=== PATIENT | female | born 1950 | race Caucasian/White ===

== ENCOUNTER 2018-08-18 17:59 | Inpatient (IN) | payer MEDICARE, BC ==
[~2018-08-18] VITALS: Ht 162.6 cm; Wt 97.1 kg
--- NOTE | 2018-08-18 18:07 | NUR ---
PT [id number], FROM HOME, GLF, ON THE GROUND FOR 4 DAYS, DENIES PAIN, -KO, PT IS AAOX4, NOT IN RESPIRATORY DISTRESS, V/S STABLE, HOOKED TO MONITOR, KEPT RESTED AND COMFORTABLE. WILL CONTINUE TO MONITOR.
--- NOTE | 2018-08-18 18:18 | NUR ---
DR. MITCHELL AT BEDSIDE FOR EVAL.
--- NOTE | 2018-08-18 18:24 | NUR ---
CALLED ADMITTING FOR INSURANCE. WATING FOR CALL BACK.
[2018-08-18] MEDS ORDERED: IV NS 0.9% 1,000 ML BAG IV ONE ×2 (18:30→19:30)
--- NOTE | 2018-08-18 18:35 | NUR ---
IV LINE ESTABLISHED, LABS DRAWNED AND SENT TO LAB.
[2018-08-18 18:38] LABS: MEAN CORPUSCULAR HGB CONC 33 g/dl (31.0-36.0); MONOCYTES # (AUTO) 1.4 /CMM (0.1-1.30); NEUTROPHILS % (AUTO) 90.1 % (43.0-81.0)
[2018-08-18 18:44] LABS: BASOPHILS % (AUTO) 0.2 % (0.0-2.0); LYMPHOCYTES # (AUTO) 1.4 /CMM (0.8-4.8); LYMPHOCYTES % (AUTO) 4.8 % (20.0-44.0); MEAN CORPUSCULAR VOLUME 91 fL (82-100); MONOCYTES % (AUTO) 4.9 % (2.0-12.0); NEUTROPHILS # (AUTO) 25.6 /CMM (1.8-8.9); PLATELET COUNT (AUTO) 686 /CMM (150-450); WHITE BLOOD COUNT (AUTO) 28.4 K/uL (4.3-11.0)
[2018-08-18 18:49] LABS: CALCIUM, SERUM 8.6 mg/dL (8.5-10.1); CREATININE 2.3 mg/dL (0.6-1.3); POTASSIUM 4.5 mmol/L (3.5-5.1)
[2018-08-18 18:52] LABS: RED BLOOD CELL COUNT(AUTO) 1.46 MIL/uL (4.0-5.2)
[2018-08-18 18:53] LABS: HEMATOCRIT 13 % (33-45); HEMOGLOBIN 4.4 g/dL (11.5-14.8)
[2018-08-18] MEDS ORDERED: VANCOMYCIN 1 GM in IV D5W 250 ML IV STA (19:17)
[2018-08-18] MEDS ORDERED: CEFEPIME 1 GM in IV D5W 50 ML IV STA (19:17)
--- NOTE | 2018-08-18 19:23 | NUR ---
CALLED [employer]. STRETCHER LEVELER OPERATOR WAS PAGED.
--- NOTE | 2018-08-18 19:31 | NUR ---
REPORT GIVEN TO MARLON FELIPE FOR PEDRO LUIS.
--- NOTE | 2018-08-18 19:36 | NUR ---
CALLED [facility]SE [facility] FOR KHOA BED
[2018-08-18 19:40] LABS: APPEARANCE,URINE Clear (CLEAR); BILIRUBIN,URINE Negative (NEGATIVE); BLOOD, URINE Negative Ery/uL (NEGATIVE); COLOR,URINE Yellow (YELLOW); KETONES,URINE Trace (NEGATIVE); LEUKOCYTE ESTERASE ,URINE Negative (NEGATIVE); NITRITE, URINE Negative (NEGATIVE); PROTEIN,URINE Negative (NEGATIVE); UGLUCOSE Negative (NEGATIVE); UROBILINOGEN,URINE 0.2 EU/dL (0.2)
[2018-08-18 19:51] LABS: RBC,URINE 0-2 /HPF (0-2)
[2018-08-18 19:52] LABS: BACTERIA,URINE 2+ /HPF (None Seen); SQUAMOUS EPITHELIAL CELL,UR Few /HPF (None Seen); WBC,URINE 0-2 /HPF (0-3)
--- NOTE | 2018-08-18 20:00 | NUR ---
KHOA BED 118-1 GIVEN
--- NOTE | 2018-08-18 20:07 | NUR ---
REPORT GIVEN TO PEDRITO MASON FOR PEDRO LUIS.
[2018-08-18 20:15] VITALS: BP 98/49
[2018-08-18 20:46] VITALS: BP 98/49
[2018-08-18 21:04] LABS: BAND % (MANUAL) 3 % (0.0-5.0); LYMPHOCYTES % (MANUAL) 7 % (16-48); MONOCYTES % (MANUAL) 5 % (0-11.0); NEUTROPHILS % (MANUAL) 85 (42-76)
[2018-08-18 21:07] VITALS: BP 121/53
[2018-08-18] MEDS ORDERED: DEXTROSE 50%-WATER 50 ML DISP.SYRIN IV PRN (22:00)
[2018-08-18] MEDS ORDERED: ACETAMINOPHEN 325 MG TABLET PO PRN (22:00)
[2018-08-18] MEDS ORDERED: ZOLPIDEM TARTRATE 5 MG TABLET PO PRN (22:00)
[2018-08-18] MEDS ORDERED: Z GUARD REMEDY 2 OZ OINT TP PRN (22:00)
[2018-08-18] MEDS ORDERED: HYDROCODONE/APAP 5/325MG 1 EACH TABLET PO PRN (22:00)
[2018-08-18] MEDS ORDERED: INSULIN REGULAR, HUMAN 100 UNIT/ML 3 ML VIAL SQ PRN (22:00)
[2018-08-18] MEDS ORDERED: MAGNESIUM HYDROXIDE 30 ML UDC PO PRN (22:00)
[2018-08-18] MEDS ORDERED: ONDANSETRON HCL/PF 4 MG/2 ML VIAL IVP PRN (22:00)
[2018-08-18 22:10] LABS: ALBUMIN 2.7 g/dL (3.4-5.0)
[2018-08-18] MEDS: BLOOD SUGAR DIAGNOSTIC 1 EACH STRIP IN SCH (22:40)
[2018-08-18 23:11] VITALS: BP 130/53
[2018-08-18 23:43] VITALS: BP 114/47
[2018-08-19] VITALS (11 sets, daily range): BP systolic 108–147; BP diastolic 39–77
[2018-08-19] MEDS: IV NS 0.9% 1,000 ML IV PRN ×2 (05:20→09:46)
[2018-08-19 07:26] LABS: BASOPHILS % (AUTO) 0.2 % (0.0-2.0); EOSINOPHILS % (AUTO) 0.2 % (0.0-6.0); LYMPHOCYTES # (AUTO) 1.6 /CMM (0.8-4.8); LYMPHOCYTES % (AUTO) 6.6 % (20.0-44.0); MEAN CORPUSCULAR HGB CONC 33 g/dl (31.0-36.0); MEAN CORPUSCULAR VOLUME 91 fL (82-100); MONOCYTES # (AUTO) 1.7 /CMM (0.1-1.30); NEUTROPHILS # (AUTO) 20.2 /CMM (1.8-8.9); PLATELET COUNT (AUTO) 557 /CMM (150-450); RED BLOOD CELL COUNT(AUTO) 2.17 MIL/uL (4.0-5.2); WHITE BLOOD COUNT (AUTO) 23.5 K/uL (4.3-11.0)
[2018-08-19 07:35] LABS: BILIRUBIN,DIRECT 0.1 mg/dL (0.0-0.2); BILIRUBIN,TOTAL 0.5 mg/dL (0.2-1.0)
[2018-08-19 07:38] LABS: CALCIUM, SERUM 8.3 mg/dL (8.5-10.1); CREATININE 1.8 mg/dL (0.6-1.3); MAGNESIUM 2.3 mg/dL (1.8-2.4); PHOSPHORUS 3.4 mg/dL (2.5-4.9); POTASSIUM 4.1 mmol/L (3.5-5.1)
--- NOTE | 2018-08-19 08:00 | NUR ---
TD/RN AM SHIFT INITIAL NOTES RECEIVED PT ASLEEP IN BED, AROUSEABLE. PT A/O X 4, DENIES ANY OTHER SYMPTOMS EXCEPT FOR GENERALIZED PAIN. ON ROOM AIR SATURATING @ 97%, RESPIRATIONS EVEN AND UNLABORED. ON TELE WITH SINUS RHYTHM, HR 80. WITH ON GOING IV INFUSION OF NS @ 125CC/HR, IV SITES PATENT WITH NO S/S OF INFECTION. CL WITHIN REACHED AND SAFETY MAINTAINED. ON GOING MONITORING.
[2018-08-19 08:12] LABS: HEMATOCRIT 20 % (33-45); HEMOGLOBIN 6.5 g/dL (11.5-14.8)
[2018-08-19] MEDS: BLOOD SUGAR DIAGNOSTIC 1 EACH STRIP IN SCH ×4 (08:23→23:38)
[2018-08-19] MEDS ORDERED: OMEG1CAP PO (09:45)
[2018-08-19] MEDS ORDERED: UBID30CA11 PO (09:45)
[2018-08-19] MEDS ORDERED: FURO20TA4 PO (09:45)
[2018-08-19] MEDS ORDERED: CHOL200026 PO (09:45)
[2018-08-19] MEDS ORDERED: INSU100I26 SQ (09:45)
[2018-08-19] MEDS ORDERED: LISI-603 PO (09:45)
[2018-08-19 10:32] LABS: LYMPHOCYTES % (MANUAL) 6 % (16-48); MONOCYTES % (MANUAL) 8 % (0-11.0); NEUTROPHILS % (MANUAL) 86 (42-76)
--- NOTE | 2018-08-19 11:45 | NUR ---
MS1/RN PHYSICAL THERAPY PT SEEN BY PHYSICAL THERAPIST. TOLERATED SESSION WITH THERAPIST. MONITORING CONTINUED.
--- NOTE | 2018-08-19 12:10 | NUR ---
MS1/RN BLOOD TRANSFUSION INFUSION OF BLOOD STARTED FOR 1 UNIT OF PRBC. ON GOING MONITORING.
--- NOTE | 2018-08-19 13:45 | NUR ---
TELE1/RN RBC INFUSION NOTES PATIENT RECEIVED ONE UNIT OF PACKED RBC'S W/ NO ADVERSE REACTION NOTED, NO S/S OF DISTRESS OR REACTION, TOLERATED INFUSION WELL.
[2018-08-19] MEDS ORDERED: DEXTROSE 50%-WATER 50 ML DISP.SYRIN IV PRN (16:00)
[2018-08-19] MEDS: IV D5/ 0.9% NACL 1,000 ML IV PRN (16:11)
[2018-08-19] MEDS: PANTOPRAZOLE 40 MG VIAL IV SCH ×2 (16:13→20:32)
[2018-08-19] MEDS: SUCRALFATE 1 G/10 ML UDC GT SCH ×2 (17:28→21:48)
[2018-08-19 18:13] LABS: ALBUMIN 2.3 g/dL (3.4-5.0); BILIRUBIN,DIRECT 0.1 mg/dL (0.0-0.2); BILIRUBIN,TOTAL 0.4 mg/dL (0.2-1.0); TOTAL PROTEIN, SERUM 5.6 g/dL (6.4-8.2)
--- NOTE | 2018-08-19 19:15 | NUR ---
MS/RN INITIAL NOTES RECEIVED PT IN BED, A/OX3. ON ROOM AIR, NO SOB NOTED. NO C/O PAIN AT THIS TIME. WITH ONGOING D5NS AT 75 ML/HR INFUSING WELL ONF LAC G18 IV. C/D/I. FC INTACT AND IN PLACED, FC CLAMPED FOR URINE SPECIMEN COLLECTION. PT IS NPO FOR EGD PROCEDURE TOMORROW, PT MADE AWARE AND VERBALIZED UNDERSTANDING. CONSENT SIGNED IN CHART PER AM RN. NO OVERT BLEEDING NOTED. SAFETY MEASURES IN PLACED. CALL LIGHT WITHIN EASY REACH. WILL CONT TO MONITOR
--- NOTE | 2018-08-19 19:24 | NUR ---
MEDSURGE1/RN HAND OFF NOTES COMPLETED CHANGE OF SHIFT REPORT AND UPDATED NIGHT NURSE ON PROCEDURES TO COMPLETE, URINE COLLECTION, STOOL COLLECTION. PATIENT WAS HANDED OFF IN STABLE CONDITION AND TOLD TO CONTINUE CARE, POSSIBLE EDG TOMORROW TO RULE OUT POSSIBLE GI BLEED.
[2018-08-19] MEDS: INSULIN REGULAR, HUMAN 100 UNIT/ML 3 ML VIAL SQ PRN (23:40)
[2018-08-20 04:00] VITALS: BP 107/49
[2018-08-20] MEDS: IV D5/ 0.9% NACL 1,000 ML IV PRN (05:24)
[2018-08-20] MEDS: BLOOD SUGAR DIAGNOSTIC 1 EACH STRIP IN SCH ×3 (05:35→17:22)
[2018-08-20 06:51] LABS: BASOPHILS % (AUTO) 0.1 % (0.0-2.0); EOSINOPHILS % (AUTO) 1.1 % (0.0-6.0); HEMATOCRIT 21 % (33-45); HEMOGLOBIN 7.2 g/dL (11.5-14.8); LYMPHOCYTES # (AUTO) 1.5 /CMM (0.8-4.8); LYMPHOCYTES % (AUTO) 8.8 % (20.0-44.0); MEAN CORPUSCULAR HGB CONC 34 g/dl (31.0-36.0); MEAN CORPUSCULAR VOLUME 91 fL (82-100); MONOCYTES # (AUTO) 1.7 /CMM (0.1-1.30); MONOCYTES % (AUTO) 9.7 % (2.0-12.0); NEUTROPHILS # (AUTO) 13.8 /CMM (1.8-8.9); NEUTROPHILS % (AUTO) 80.3 % (43.0-81.0); PLATELET COUNT (AUTO) 542 /CMM (150-450); RED BLOOD CELL COUNT(AUTO) 2.32 MIL/uL (4.0-5.2); WHITE BLOOD COUNT (AUTO) 17.2 K/uL (4.3-11.0)
[2018-08-20 06:56] LABS: ALBUMIN 2.1 g/dL (3.4-5.0); BILIRUBIN,TOTAL 0.5 mg/dL (0.2-1.0); CALCIUM, SERUM 8.4 mg/dL (8.5-10.1); CREATININE 1.4 mg/dL (0.6-1.3); MAGNESIUM 2.2 mg/dL (1.8-2.4); PHOSPHORUS 2.5 mg/dL (2.5-4.9); POTASSIUM 4.4 mmol/L (3.5-5.1); TOTAL PROTEIN, SERUM 5.3 g/dL (6.4-8.2)
--- NOTE | 2018-08-20 07:02 | NUR ---
RN NOTES PT IN STABLE CONDITION. NO ACUTE CHANGES THROUGHOUT SHIFT. NO OVERT SIGNS OF BLEEDING NOTED. ALL NEEDS ANTICIPATED. SAFETY MEASURES OBSERVED AT ALL TIMES. ENDORSED TO AM RN FOR PEDRO LUIS
[2018-08-20 07:15] LABS: APPEARANCE,URINE CLEAR (CLEAR); BILIRUBIN,URINE NEGATIVE (NEGATIVE); BLOOD, URINE NEGATIVE Ery/uL (NEGATIVE); COLOR,URINE YELLOW (YELLOW); KETONES,URINE NEGATIVE (NEGATIVE); LEUKOCYTE ESTERASE ,URINE NEGATIVE (NEGATIVE); NITRITE, URINE NEGATIVE (NEGATIVE); PROTEIN,URINE NEGATIVE (NEGATIVE); UGLUCOSE NEGATIVE (NEGATIVE); UROBILINOGEN,URINE 0.2 EU/dL (0.2)
--- NOTE | 2018-08-20 07:15 | NUR ---
MS/RN INITIAL NOTES RECEIVED PT IN BED, A/OX3. ON ROOM AIR, NO SOB NOTED. NO C/O PAIN AT THIS TIME. WITH ONGOING D5NS AT 75 ML/HR INFUSING WELL ONF LAC G18 IV. C/D/I. FC INTACT AND IN PLACED, FC CLAMPED FOR URINE SPECIMEN COLLECTION. PT IS NPO FOR EGD PROCEDURE TODAY, PT MADE AWARE AND VERBALIZED UNDERSTANDING. CONSENT SIGNED IN AND PLACED IN CHART. NO OVERT BLEEDING NOTED. SAFETY MEASURES IN PLACE. CALL LIGHT WITHIN EASY REACH. WILL CONT TO MONITOR.
[2018-08-20 07:25] LABS: EOSINOPHIL,URINE None Seen
[2018-08-20] MEDS: SUCRALFATE 1 G/10 ML UDC GT SCH ×4 (07:30→22:08)
[2018-08-20 07:33] LABS: CREATININE, URINE 27.4 MG/DL (30.0-125.0); URINE TOTAL PROTEIN 13.3 mg/dL (0-11.9)
[2018-08-20 08:00] VITALS: BP 121/46
[2018-08-20] MEDS: PANTOPRAZOLE 40 MG VIAL IV SCH ×2 (09:00→21:36)
--- NOTE | 2018-08-20 09:00 | NUR ---
MS RN NOTES PT LEFT THE UNIT FOR EGD.
--- NOTE | 2018-08-20 10:10 | NUR ---
MS RN NOTES RECEIVED PT FROM OR NURSE. PT STABLE. VITAL SIGNS WNL: BP 120/49, HR 68, RR 18, O2 SAT 98%, TEMP 98. WILL CONTINUE TO MONITOR PT.
[2018-08-20] MEDS: SOD FERRIC GLUC 125 MG in IV NS 0.9% 100 ML IV SCH (14:12)
[2018-08-20 16:00] VITALS: BP 137/54
[2018-08-20] MEDS: INSULIN REGULAR, HUMAN 100 UNIT/ML 3 ML VIAL SQ PRN (17:57)
--- NOTE | 2018-08-20 19:05 | NUR ---
MS/RN CLOSING NOTES PT RESTING IN BED, A/OX3. ON ROOM AIR, NO SOB NOTED. NO C/O PAIN AT THIS TIME. WITH ONGOING D5NS AT 75 ML/HR INFUSING WELL ONF LAC G18 IV. C/D/I. FC INTACT AND IN PLACED, FC CLAMPED FOR URINE SPECIMEN COLLECTION. PT IS ON CLEAR LIQUID DIET. NO OVERT BLEEDING NOTED. SAFETY MEASURES PLACED THROUGH OUT SHIFT. ALL MD ORDERS ATTENDED. ENDORSED TO BOBCAT OPERATOR NURSE FOR PEDRO LUIS.
[2018-08-20 20:19] VITALS: BP 129/61
[2018-08-21 00:11] VITALS: BP 129/61
[2018-08-21] MEDS: BLOOD SUGAR DIAGNOSTIC 1 EACH STRIP IN SCH ×3 (00:20→11:18)
--- NOTE | 2018-08-21 01:21 | NUR ---
Lying in bed A/O x4 IV to right A/C d/c c/o pain @ site. Started S/l 20 ga to right wrist with D5N.S. 0.9% at 75 cchr. Pt denies any N/v or abd pain advance diet to mechanical soft for the am. F/c draining clear yellow urine via gravity. Midnight bllod sugar 123 no coverage. Denies of any distress. Side rails up Call light within reach.
[2018-08-21 05:03] VITALS: BP 117/55
[2018-08-21 06:58] LABS: BASOPHILS # (AUTO) 0.1 /CMM (0.0-0.2); BASOPHILS % (AUTO) 0.6 % (0.0-2.0); EOSINOPHILS % (AUTO) 3.1 % (0.0-6.0); HEMATOCRIT 23 % (33-45); HEMOGLOBIN 7.7 g/dL (11.5-14.8); LYMPHOCYTES # (AUTO) 1.8 /CMM (0.8-4.8); LYMPHOCYTES % (AUTO) 14.4 % (20.0-44.0); MEAN CORPUSCULAR HGB CONC 34 g/dl (31.0-36.0); MEAN CORPUSCULAR VOLUME 91 fL (82-100); MONOCYTES # (AUTO) 1.4 /CMM (0.1-1.30); MONOCYTES % (AUTO) 11.3 % (2.0-12.0); NEUTROPHILS % (AUTO) 70.6 % (43.0-81.0); PLATELET COUNT (AUTO) 498 /CMM (150-450); WHITE BLOOD COUNT (AUTO) 12.8 K/uL (4.3-11.0)
[2018-08-21 07:11] LABS: ALBUMIN 2.2 g/dL (3.4-5.0); BILIRUBIN,TOTAL 0.3 mg/dL (0.2-1.0); CALCIUM, SERUM 8.4 mg/dL (8.5-10.1); CREATININE 1.1 mg/dL (0.6-1.3); MAGNESIUM 2.1 mg/dL (1.8-2.4); PHOSPHORUS 2.2 mg/dL (2.5-4.9); TOTAL PROTEIN, SERUM 5.6 g/dL (6.4-8.2)
[2018-08-21 08:00] VITALS: BP_SYST 136; BP_DIAS 50; BP_DIAS 58
--- NOTE | 2018-08-21 08:25 | NUR ---
rn intial notes RECEIVED PT AWAKE AND ALERT, DENIES PAIN AT THIS TIME. NO BLEEDING NOTED. IVF INFUSING WELL. SAFETY ENSURED. WILL MONITOR
[2018-08-21] MEDS: SUCRALFATE 1 G/10 ML UDC GT SCH ×2 (09:06→11:47)
[2018-08-21] MEDS: PANTOPRAZOLE 40 MG VIAL IV SCH (09:06)
[2018-08-21 11:07] LABS: *SPE A/G RATIO 0.8 (0.7-1.7); *SPE ALBUMIN 2.2 g/dL (2.9-4.4); *SPE ALPHA-1-GLOBULIN 0.3 g/dL (0.0-0.4); *SPE ALPHA-2-GLOBULIN 0.8 g/dL (0.4-1.0); *SPE BETA GLOBULIN 0.9 g/dL (0.7-1.3); *SPE GLOBULIN, TOTAL 2.7 g/dL (2.2-3.9); *SPE M-SPIKE Not Observed g/dL (Not Observed); *SPEGAMMA GLOBULIN 0.7 g/dL (0.4-1.8)
[2018-08-21] MEDS ORDERED: NEUTRA PHOS 1 POWD.PACKET PO ONE (12:00)
[2018-08-21 12:09] LABS: PTH, INTACT 31 pg/mL (15-65)
[2018-08-21] MEDS ORDERED: PANT40TA2 PO (12:55)
[2018-08-21] MEDS ORDERED: SUCR1ORA6 GT (12:55)
[2018-08-21] MEDS ORDERED: FERR325T23 PO (12:55)
[2018-08-21] MEDS: SOD FERRIC GLUC 125 MG in IV NS 0.9% 100 ML IV SCH (14:29)
--- NOTE | 2018-08-21 15:56 | NUR ---
RN DC NOTES TEL REPORT GIVEN TO [place] TOOL AND DIE SUPERVISORMARLON THURMAN. ALL DC NOTES GIVEN TO AMBULANCE. IVHL REMOVED AND CIVERED. NO BLEEDING NOTED, PT HAS NO COMPLAINTS OF PAIN. LEFT UNIT VIA GURNEY IN STABLE CONDITION WITH SKIN INTACT
== END 2018-08-21 16:00 | DRG 377 ==
LOC: ER 18:05 → TELE-TD 20:02 → MEDSG1 08-19 09:00
PROVIDERS: ADMIT Nurse Practitioner Acute Care; ATTEND Student in an Organized Health Care Education/Training Program
PROC: 30233P1 Transfusion of Nonautologous Frozen Red Cells into Peripheral Vein, Percutaneous Approach (ICD-10-PCS; 2018-08-18)
PROC: 0DB68ZX Excision of Stomach, Via Natural or Artificial Opening Endoscopic, Diagnostic (ICD-10-PCS; principal; 2018-08-20)
PROC: 0DBA8ZX Excision of Jejunum, Via Natural or Artificial Opening Endoscopic, Diagnostic (ICD-10-PCS; 2018-08-20)
DX: K28.4 Chronic or unspecified gastrojejunal ulcer with hemorrhage (principal); N17.0 Acute kidney failure with tubular necrosis; M62.82 Rhabdomyolysis; E87.1 Hypo-osmolality and hyponatremia; D62 Acute posthemorrhagic anemia; E78.5 Hyperlipidemia, unspecified; Z86.73 Personal history of transient ischemic attack (TIA), and cerebral infarction without residual deficits; E86.0 Dehydration; E86.9 Volume depletion, unspecified; E86.1 Hypovolemia; D47.3 Essential (hemorrhagic) thrombocythemia; D72.829 Elevated white blood cell count, unspecified; T39.395A Adverse effect of other nonsteroidal anti-inflammatory drugs [NSAID], initial encounter; Y92.89 Other specified places as the place of occurrence of the external cause; K29.71 Gastritis, unspecified, with bleeding; K20.9 Esophagitis, unspecified; E11.319 Type 2 diabetes mellitus with unspecified diabetic retinopathy without macular edema; E11.22 Type 2 diabetes mellitus with diabetic chronic kidney disease; I12.9 Hypertensive chronic kidney disease with stage 1 through stage 4 chronic kidney disease, or unspecified chronic kidney disease; N18.9 Chronic kidney disease, unspecified; Z87.891 Personal history of nicotine dependence
CPT/HCPCS: 36415; 71045-TC; 76770-TC; 80048-TC; 80053-TC; 80061-TC; 80076-TC; 81000-TC; 82040-TC; 82247-TC; 82248-TC; 82550-TC; 82570-TC; 82728-TC; 82962-TC; 83540-TC; 83605-TC; 83735-TC; 83970; 84100-TC; 84155; 84155-TC; 84165; 84300-TC; 84484-TC; 85025-TC; 85730-TC; 86850-TC; 86921-TC; 87040-TC; 87081-TC; 87086-TC; 88305-TC; 88313-TC; 88342; 93307-TC; 97110-TC; 97116-TC; 97530-TC; C9113; G0378; J0692; J1815; J2704; J2916; J3370; J3490; J7030; J7042; J7050; J7060; P9016-BL

== ENCOUNTER 2021-11-12 19:50 | Inpatient (IN) | payer MEDICARE, BC ==
[~2021-11-12] VITALS: Ht 160 cm; Wt 62.6 kg
[~2021-11-12 19:50] MED LIST: CHOL200026 PO; FERR325T23 PO; INSU100I26 SQ; LISI20TA30 PO; OMEG1CAP PO; PANT40TA2 PO; SUCR1ORA6 GT; UBID30CA11 PO
--- NOTE | 2021-11-12 20:00 | NUR ---
TO ER BED 9. BIBRA 39 FROM HOME FOR C/O WEAKNESS. PT FOUND ON THE FLOOR BY A FRIEND. PT STATES "SHE WAS ON THE FLOOR SINCE NOVEMBER 06 , TOO WEAK TO GET UP". PT AAOX4, NON AMBULATORY. BREATHING IS EVEN AND NONLABORED. CONNECTED TO MONITOR. AWAITING MD BECERRA
[2021-11-12] MEDS ORDERED: ONDANSETRON HCL/PF 4 MG/2 ML VIAL ONE (20:17)
[2021-11-12] MEDS ORDERED: IV NS 0.9% 1,000 ML BAG IV ONE (20:30)
[2021-11-12] MEDS ORDERED: ONDANSETRON HCL/PF 4 MG/2 ML VIAL IVP ONE (20:30)
--- NOTE | 2021-11-12 20:44 | NUR ---
PT TAKEN TO CT SCAN
[2021-11-12 20:47] LABS: BASOPHILS % (AUTO) 0.1 % (0.0-2.0); EOSINOPHILS % (AUTO) 0.2 % (0.0-6.0); LYMPHOCYTES # (AUTO) 0.4 K/uL (0.8-4.8); LYMPHOCYTES % (AUTO) 7.4 % (20.0-44.0); MEAN CORPUSCULAR HGB CONC 31 g/dl (31.0-36.0); MEAN CORPUSCULAR VOLUME 116 fL (82-100); MONOCYTES # (AUTO) 0.5 K/uL (0.1-1.30); MONOCYTES % (AUTO) 9.2 % (2.0-12.0); NEUTROPHILS # (AUTO) 4.8 K/uL (1.8-8.9); NEUTROPHILS % (AUTO) 83.1 % (43.0-81.0); PLATELET COUNT (AUTO) 260 K/uL (150-450); WHITE BLOOD COUNT (AUTO) 5.8 K/uL (4.3-11.0)
[2021-11-12 21:01] LABS: CALCIUM, SERUM 8.9 mg/dL (8.5-10.1); CARBON DIOXIDE 17 mmol/L (21-32); CHLORIDE 112 mmol/L (98-107); GLUCOSE 90 mg/dL (74-106); POTASSIUM 4.2 mmol/L (3.5-5.1); SODIUM SERUM 148 mmol/L (136-145); UREA NITROGEN, BLOOD 59 mg/dL (7-18)
[2021-11-12 21:07] LABS: ALANINE AMINOTRANSFERASE 40 U/L (12-78); ALBUMIN 2.8 g/dL (3.4-5.0); ALCOHOL, BLOOD < 3 mg/dL (0-0); ALKALINE PHOSPHATASE 53 U/L (46-116); ASPARTATE AMINOTRANSFERASE 62 U/L (15-37); BILIRUBIN,DIRECT 0.1 mg/dL (0.0-0.2); BILIRUBIN,TOTAL 0.4 mg/dL (0.2-1.0); TOTAL PROTEIN, SERUM 6.2 g/dL (6.4-8.2)
[2021-11-12 21:15] LABS: ACETAMINOPHEN 0 ug/ml (10-30)
--- NOTE | 2021-11-12 21:15 | NUR ---
COVID SWAB COLLECTED AND SENT TO LAB
--- NOTE | 2021-11-12 21:16 | NUR ---
IV LINE ESTABLISHED, RHAND 20G. BLOOD OBTAINED AND SENT TO LAB
--- NOTE | 2021-11-12 21:17 | NUR ---
INSERTED F/C 16f , 450ML OF URINE NOTED, PT TOLERATED WELL, WILL CONTINUE TO MONITOR
[2021-11-12 21:26] LABS: SERUM AMMONIA 10 umol/L (11-32)
[2021-11-12 21:39] LABS: BILIRUBIN,URINE SMALL (NEGATIVE); COLOR,URINE YELLOW (YELLOW); LEUKOCYTE ESTERASE ,URINE NEGATIVE (NEGATIVE); NITRITE, URINE NEGATIVE (NEGATIVE); PROTEIN,URINE TRACE mg/dl (NEGATIVE); UGLUCOSE NEGATIVE (NEGATIVE); UROBILINOGEN,URINE 0.2 EU/dL (0.2)
[2021-11-12] MEDS ORDERED: CLOPIDOGREL BISULFATE 75 MG TABLET ONE (21:39)
[2021-11-12 21:41] LABS: RED BLOOD CELL COUNT(AUTO) 1.44 MIL/uL (4.0-5.2)
[2021-11-12 21:42] LABS: HEMATOCRIT 17 % (33-45); HEMOGLOBIN 5.2 g/dL (11.5-14.8)
--- NOTE | 2021-11-12 21:45 | NUR ---
LIGIA PAGED PER DR MARIN
[2021-11-12 21:55] LABS: BACTERIA,URINE 3+ /HPF (None Seen); RBC,URINE 0-2 /HPF (0-2); SQUAMOUS EPITHELIAL CELL,UR 0-2 /HPF (None Seen); WBC,URINE 0-2 /HPF (0-3)
[2021-11-12] MEDS ORDERED: CLOPIDOGREL BISULFATE 300 MG TABLET PO ONE (22:00)
--- NOTE | 2021-11-12 22:11 | NUR ---
SECOND IV LINE ESTABLISHED, LHAND 20G
--- NOTE | 2021-11-12 22:11 | NUR ---
OBTAINED SIGNED CONSENT FOR BLOOD TRANSFUSION FROM PT
[2021-11-12 22:17] LABS: BAND % (MANUAL) 4 % (0.0-5.0); LYMPHOCYTES % (MANUAL) 10 % (16-48); NEUTROPHILS % (MANUAL) 86 (42-76)
--- NOTE | 2021-11-12 22:38 | NUR ---
REPORT GIVEN TO MARK MASON FOR PEDRO LUIS
--- NOTE | 2021-11-12 22:50 | NUR ---
JIGSAWYERSUPERINTENDENT DRILLING AND PRODUCTION NOTE PT TRANSPORTED VIA GURNEY TO UNIT AT THIS TIME. PT FROM HOME ADMITTED TO TELE FROM ER UNDER DR EUSEBIO SEGOVIA FOR ADMITTING DX OF ANEMIA. A/O X4 AND ABLE TO MAKE NEEDS KNOWN. PT ON 2 LPM VIA NC, SATURATING WELL. NO SOB OR S/S OF RESPIRATORY DISTRESS. BREATHING EVEN AND UNLABORED. ON EXTERNAL SENIOR FIRE PROTECTION ENGINEER READING SR 82 BPM. PT DENIES ANY PAIN OR DISCOMFORT AT THIS TIME. PT NOTED WITH PRESSURE WOUND TO L HIP, ABRASIONS ON LEFT AND RIGHT ARM, AND BRUISING TO LEFT AND RIGHT ARM. IV ACCESS IN BILATERAL HANDS 20 GAUGE, INTACT AND PATENT. WITH MARIE CATHETER DRAINING CLEAR YELLOW URINE. ORIENTED PT TO UNIT, STAFF, AND ROOM. PT BELONGINGS ACCOUNTED FOR AND BELONGINGS LIST SIGNED. PT AWAITING BLOOD TRANSFUSION, LAB IS GETTING BLOOD READY. SAFETY PRECAUTIONS IN PLACE. BED IN LOWEST LOCKED POSITION, HOB ELEVATED, SIDE RAILS UP X2, AND CALL LIGHT AND TABLE WITHIN REACH. ALL NEEDS MET AT THIS TIME.
[2021-11-12 22:59] LABS: THYROID STIMULATING HORMONE 2.897 uIU/mL (0.358-3.74)
[2021-11-12 23:00] VITALS: BP 127/57
[2021-11-12 23:58] VITALS: BP 118/52
[2021-11-13] VITALS (15 sets, daily range): BP systolic 107–137; BP diastolic 44–73
[2021-11-13] MEDS ORDERED: Z GUARD REMEDY 4 OZ OINT TP PRN (00:30)
[2021-11-13] MEDS ORDERED: ACETAMINOPHEN 325 MG TABLET PO PRN (00:30)
[2021-11-13] MEDS ORDERED: ONDANSETRON HCL/PF 4 MG/2 ML VIAL IVP PRN (00:30)
[2021-11-13] MEDS ORDERED: DEXTROSE 50%-WATER 50 ML DISP.SYRIN IV PRN (00:30)
[2021-11-13] MEDS ORDERED: ENOXAPARIN SODIUM 30 MG/0.3 ML DISP.SYRIN SQ SCH (00:30)
[2021-11-13] MEDS: BLOOD SUGAR DIAGNOSTIC 1 EACH STRIP IN SCH ×5 (01:03→21:38)
--- NOTE | 2021-11-13 01:05 | NUR ---
RN NOTE PT NOTED WITH BLOOD SUGAR LEVEL OF 59. PT REQUESTED ORANGE JUICE. GAVE PT ORANGE JUICE AND WILL RECHECK BS IN 1 HOUR.
--- NOTE | 2021-11-13 02:03 | NUR ---
RN NOTE RECHECKED PATIENTS BLOOD SUGAR. BLOOD SUGAR LEVEL IS 77. CHARGE NURSE JESSENIA GUADALUPE.
--- NOTE | 2021-11-13 03:45 | NUR ---
RN NOTE 1 BAG OF PRBC TRANSFUSED AT THIS TIME. NO ADVERSE REACTIONS. VSS. BP 126/53, HR 74, R 18, TEMP 97.8, AND O2 SAT 100%.
--- NOTE | 2021-11-13 05:30 | NUR ---
RN NOTE FFP PRODUCT NUMBER WOULD NOT SCAN. SPOKE WITH MORRIS FROM LAB WHO GAVE VERBAL AUTHORIZATION TO OVERRIDE. WITNESSED BY CHARGE NURSE JESSENIA.
--- NOTE | 2021-11-13 06:32 | NUR ---
RN NOTE PT NOTED WITH BLOOD SUGAR LEVEL OF 59. PT REQUESTED ORANGE JUICE. GAVE PT ORANGE JUICE AND WILL RECHECK BS IN 1 HOUR.
[2021-11-13 06:37] LABS: ALBUMIN 2.4 g/dL (3.4-5.0); BILIRUBIN,TOTAL 0.7 mg/dL (0.2-1.0); CREATININE 1.8 mg/dL (0.6-1.3); MAGNESIUM 2.6 mg/dL (1.8-2.4); PHOSPHORUS 4.3 mg/dL (2.5-4.9); POTASSIUM 3.9 mmol/L (3.5-5.1); TOTAL PROTEIN, SERUM 5.3 g/dL (6.4-8.2)
[2021-11-13 06:46] LABS: THYROID STIMULATING HORMONE 1.994 uIU/mL (0.358-3.74)
[2021-11-13] MEDS ORDERED: PANTOPRAZOLE 40 MG TABLET.DR PO SCH (07:00)
[2021-11-13] MEDS ORDERED: INSULIN GLARGINE,BASAGLAR 100 UNIT/ML INSULN.PEN SQ SCH (07:30)
--- NOTE | 2021-11-13 07:50 | NUR ---
AUDIO ENGINEER OPENING NOTE RECEIVED PATIENT AWAKE IN BED. A/O X4 AND ABLE TO VERBALIZED NEEDS. PT ON 2 LPM VIA NC, SATURATING WELL. NO SOB OR CARDIAC DISTRESS NOTED. ON EXTERNAL SENIOR CYBER SECURITY ANALYST READING SR 75 BPM. PT DENIES ANY PAIN AT THIS TIME. IV ACCESS IN BILATERAL HANDS 20 GAUGE, INTACT AND PATENT. WITH MARIE CATHETER DRAINING CLEAR YELLOW URINE. SAFETY PRECAUTIONS IN PLACE. BED IN LOWEST LOCKED POSITION, HOB ELEVATED, SIDE RAILS UP X2, AND CALL LIGHT AND TABLE WITHIN REACH. KEPT RESTED AND COMFORTABLE. WILL MONITOR ACCORDINGLY.
--- NOTE | 2021-11-13 07:55 | NUR ---
MGMT SPECIALIST CLOSING NOTE PT AWAKE IN BED. A/O X4 AND ABLE TO MAKE NEEDS KNOWN. PT ON 2 LPM VIA NC, SATURATING WELL. NO SOB OR S/S OF RESPIRATORY DISTRESS. BREATHING EVEN AND UNLABORED. ON EXTERNAL PHYSIOLOGIST READING SR 78 BPM. PT DENIES ANY PAIN OR DISCOMFORT AT THIS TIME. IV ACCESS IN BILATERAL HANDS 20 GAUGE, INTACT AND PATENT. WITH MARIE CATHETER DRAINING CLEAR YELLOW URINE. SAFETY PRECAUTIONS IN PLACE. BED IN LOWEST LOCKED POSITION, HOB ELEVATED, SIDE RAILS UP X2, AND CALL LIGHT AND TABLE WITHIN REACH. ALL NEEDS MET AT THIS TIME AND WILL ENDORSE TO ONCOMING NURSE FOR PEDRO LUIS.
[2021-11-13] MEDS: SUCRALFATE 1 G/10 ML UDC GT SCH ×4 (08:37→21:22)
[2021-11-13] MEDS: PANTOPRAZOLE 40 MG VIAL IV SCH ×2 (08:38→21:23)
[2021-11-13] MEDS: FERROUS SULFATE (325 MG) 325 MG/TAB TABLET PO SCH (08:49)
--- NOTE | 2021-11-13 09:25 | NUR ---
SS consult requested for elderly pt. who lives alone. SW will follow up at a later time.
--- NOTE | 2021-11-13 09:45 | NUR ---
WOUND CARE CONSULT: PT PRESENTS WITH MULTIPLE SKIN ISSUES AND WOUNDS PRESENT ON ADMISSION INCLUDING LEFT HIP/THIGH DEEP TISSUE INJURY IN EVOLUTION WITH MULTIPLE OPEN AREAS, SACRAL DEEP TISSUE INJURY, DRY SCABS TO LEFT SHOULDER AND LEFT UPPER BACK AREA, LEFT ANKLE DRY ABRASION AND DISCOLORATION TO UPPER EXTREMITIES. RECOMMENDATIONS MADE FOR SKIN PROTECTION AND WOUND CARE. DISCUSSED WITH NURSING STAFF. DR LETICIA ALEGRE CALLED FOR SURGICAL CONSULT ON LEFT HIP AREA. MD IN AGREEMENT WITH PLAN OF CARE.
[2021-11-13 12:30] LABS: BASOPHILS % (AUTO) 0.1 % (0.0-2.0); LYMPHOCYTES # (AUTO) 0.8 K/uL (0.8-4.8); LYMPHOCYTES % (AUTO) 10.4 % (20.0-44.0); MEAN CORPUSCULAR HGB CONC 33 g/dl (31.0-36.0); MEAN CORPUSCULAR VOLUME 102 fL (82-100); MONOCYTES # (AUTO) 0.9 K/uL (0.1-1.30); MONOCYTES % (AUTO) 11.6 % (2.0-12.0); NEUTROPHILS # (AUTO) 5.8 K/uL (1.8-8.9); NEUTROPHILS % (AUTO) 74.9 % (43.0-81.0); PLATELET COUNT (AUTO) 205 K/uL (150-450); WHITE BLOOD COUNT (AUTO) 7.8 K/uL (4.3-11.0)
[2021-11-13 12:31] LABS: RED BLOOD CELL COUNT(AUTO) 1.88 MIL/uL (4.0-5.2)
[2021-11-13 12:34] LABS: HEMATOCRIT 19 % (33-45); HEMOGLOBIN 6.2 g/dL (11.5-14.8)
--- NOTE | 2021-11-13 12:42 | NUR ---
RN NOTES: RECEIVED CALL FROM PHIL(LAB) CRITICAL LAB RESULT HGB 6.2, HCT 19. DR ANAYA MADE AWARE.
--- NOTE | 2021-11-13 13:20 | NUR ---
RN NOTES: DR ANAYA ORDERED TRANSFUSE 1 PRBC OF BLOOD. MD ALSO MADE AWARE ABOUT PATIENT HAD LOOSE BROWNISH RED COLORED STOOL.
--- NOTE | 2021-11-13 13:40 | NUR ---
SS Note: SS consult requested for lives alone and getting life alert prior to discharge. Pt. Is a 71-year-old White female. Per EMR, pt. was brought in for weakness. Pt. presents alert and oriented x4 (self, place, time, situation). Pt. appeared groomed, made appropriate eye-contact, and was cooperative during interview. Pt. reported no hx of mental health or substance abuse. Pt. denies suicidal ideation and homicidal ideation. Pt. reported no auditory hallucinations, visual hallucinations, paranoia, or delusions. SW explored pt.s living situation. Per pt., she lives alone [[id number] [place] [address]], pt. was able to confirm address. SW explored pt.s fall at home. Per pt., she was vomiting on the 06 of November and walked to the bathroom. As she was walking to the bathroom, her body felt weak, and she fell to the floor. Pt. could not get up and was down on the floor until this previous Saturday [11/12]. Pt.s friend Laly came by to check on her and called 911. Per pt., this has never happened before and its her first time. Prior to being hospitalized, pt. stated that she is ambulatory and is independent with her ADLs. Pt. is open to life alert, SW will follow-up and contact life alert. Pt. stated that she is not able to pay out of pocket. STACEY contacted [facility] [spoke with Douglas [phone], and Casimiro [phone]] regarding services. They stated that pt. would have to pay out of pocket and insurance will not cover it. STACEY notified pt. and she is not willing to pay out of pocket so she is rejecting life alert. Plan: STACEY provided available resources and pt. accepted. STACEY will contact life alert and update pt. Upon discharge, pt. wants to go back home [[address] [place] [address]], will follow-up to see if pt. is able to go home. Resources Provided: ABUSE PREVENTION: ELDER ABUSE HOTLINE (26/11) ADULT PROTECTIVE SERVICES HOTLINE LONG-TERM CARE [facility] AREA ON AGING (HOTLINE) ADULT DAY HEALTH CARE CARE CENTERS: Private pay or Medi-juan funded adult day care [facility] , [facility] , [facility] , [facility] Adult Day Health Care , [facility] Adult Day Health Care , [facility] Adult [facility] Center , Paige [facility] , [facility] , [place] ALZHEIMERS DISEASE/DEMENTIA: Alzheimers Association Helpline [facility] www.alz.org/[facility] Department of Aging www.lacity.org Family Caregiver [place] www.caregiver.org [place] Caregiver Resources Center/Family Support www.[facility].org CANCER RESOURCES: [place] Cancer Society www.cancer.org Cancer Support Community www.CancerSupportVvsb.org: CancerCare www.cancercare.org [facility] www.[facility].org COMMUNITY HEALTH ASSOCIATIONS: AARP www.aarp.org ALS Association (ask for Nuris) www.als.org [place] Diabetes Association www.diabetes.org Gu[place] Heart Association www.heart.org Guinean Lung Association www.lungusa.org Guinean Parkinson Disease Association www.apdaparkinson.org Gu[place]an [place] , www.redcross.org Arthritis Foundation www.arthritis.org Crohns & Colitis Foundation of Guinean www.ccfa.org/chapters/becca National Multiple Sclerosis Society www.nationalmssociety.org Myasthenia Gravis Foundation www.myasthenia-ca.org National Stroke Association www.stroke.org CONSERVATORSHIP & GUARDIANSHIP: AARP Leta ed Legal Services Center for Health Care Rights Eldercare Information and Referral Gill Net Stringer [facility]: [facility] Referral Service [facility] Legal Services Office of the Public Guardian [place] EYESIGHT DISORDER RESOURCES: [place] Macular Degeneration Foundation [facility] www.[facility] center[facility]stitfort way[facility].org GRIEF AND BEREAVEMENT RESOURCES: The [place] , [facility] THE [place] Connection , [facility] , [place] HEARING DISORDER RESOURCES: [place] Telephone Access Program Deaf and Disabled Telecommunications Program www.ddtp.cpuc.ca.gov HearRx Hearing Centers (Orient) Better Hearing Systems , [place] GLAD ([facility] Agency on Deafness) V/ TTY; Retread Technician , [facility] Hearing [place] [facility] -low income hearing aid assistance www.plaistowMiTurnohearingfoundation.org [facility] [place] HELP AT HOME CAREGIVER SUPPORT: In Home Support Services (Must have Medi-Juan to be eligible) *Ask for a list of agencies that provide services to assist with care in the home. Local Senior Centers also have listings of care providers. HOME SAFETY MODIFICATIONS AND EQUIPMENT: Senior centers have additional referrals. [place] TimeCast and madvertise Investment Dept. Handyworker Program (low income) or Visit http://hcidla.[facility].org/wrz-spcuup-rv for more information National Seating and Mobility and/or ; Forever Active www.foreverHardMetrics.Offerama Stay Home Safe www.Stayhomesafe.Offerama LIFE ALERT RESPONSE SYSTEM: SunEdison Lifeline Services 976-704-9791 www. Youth Noise Life Alert 775-722-9404 www.Gradematic.com Life Station 107-005-8853 www.Kilopassation.Offerama Safe Return [phone] www.alz.or/safereturn Cell Phones for Seniors www.Mir[employer] Financial MEALS AND FOOD PROGRAMS: Given Meals on Wheels [phone] [place] Meals on Wheels [phone] [facility] [phone] [place] to the Homebound [phone] [place] to the Homebound [phone] [facility] to the Homebound [phone] [facility] to the Homebound [phone] AlexisJam Thomas [phone] [facility] [phone] ONE Generation [phone] [facility] [phone] [facility] Hospital[facility] [phone] Meals on Wheels [phone] For all ages: $6.85/ meal w side. Delivered M-F from 10 am-1pm. Application and payment is done over the phone. Frozen meals available for weekends. Emergency Food [facility] [phone] Episcopalian Pipe Production Worker [phone] [facility] [phone] Verónica Renteriaan Outreach- Brown bag lunches [phone] [facility] [phone] MEAL/GROCERY DELIVERY PROGRAMS: [place] [facility] Gourmet Meals [phone]- [facility] [phone]- [facility] Magic Kitchen [phone] Moms Meals [phone] (ask Louie for Discount Select grocery stores may provide delivery. MEDICAL INSURANCE SUPPORT SERVICES: Center for Health Care Rights [phone] Health Insurance Counseling/Advocacy Programs (HICAP)-Must have Medicare. Offers counseling for Medi-Juan eligibility [phone] Department of Public Pipe Production Worker [phone] www.[facility].ca.gov Medicare [phone] www.socialsecurity.org Social Security [phone] SENIOR ACTIVITY PROGRAMS: *Contact a local senior center, adult school, recreation facility or community college for education, fitness, recreation, and social programs. Aquatic Therapy and Adapted Exercise programs through [facility] [phone] Encore at [facility] [phone] www.[facility]/encore U- Senior Friends [phone] [place] Senior Programs [phone] www.oasisnet.org Suddenly 65 www.eeuqpvnr76.com SENIOR CENTERS: [facility] Center [phone] [place] [address] [facility] ParishesJam [phone] [facility] [phone] [facility] [phone] [facility] [phone] [facility] [phone] [facility] [phone] [facility] [phone] One Generation, [facility] [phone] [facility] [phone] [facility] [phone] [facility] [phone] [facility] [phone] TRANSPORTATION: Local [facility] Centers may have applications for transportation programs and additional resources. ACCESS Services [phone] Transportation for seniors and disabled persons 7 days a week requiring 254 hr. advance reservation. Must apply and register for program flavia eligible. [employer]Tex [phone] or [phone] Transportation for seniors and persons with ADA card/metro disabled card in the [facility]. M-F only. Must register for services. ONE GENERATION [phone] Serves 65 years + in conjunction with SomnoMed program. Must be registered with both programs. A to B Transport [phone] Provides wheelchair/gurney van service. Adult Medical Transport [phone] Accepts [facility] with prior authorization. Care Van [phone] Provides wheelchair Transport. [facility] Wide Transportation [phone] Provides gurney service [facility] [phone] Gurney Transport. [facility] Transportation [phone] wheelchair & gurney transport [facility] Transportation [phone] wheelchair & gurney transport [place] Non-Emergency Transport [phone] wheelchair & gurney transport [facility] Living Alpha [phone] Short Term Transportation primarily for adults with disabilities on social security income. Nominal fee may apply and a reservation is required. [facility] Miiix [phone] or [phone] [facility] Center[facility] Fiber Solutions [phone] [place] [address] Referral Services -[phone] For additional programs & services VETERANS RESOURCES: Submissions for Aid and Attendance should be done directly to Federal VA office locatd at : [address] [facility] [address] [phone] National Caregiver Support Line [phone] Juan Castrejon Veterans Services Field Office [phone] [place] Department of Affairs [phone] Pension Information [phone]
[2021-11-13] MEDS: ENSURE ENLIVE CHOC 237 ML CAN PO SCH (17:52)
--- NOTE | 2021-11-13 18:51 | NUR ---
RN NOTES: 1PRBC BLOOD TRANSFUSION STARTED.
--- NOTE | 2021-11-13 19:10 | NUR ---
FLOOR COVERING PRINTER OPENING NOTES: RECEIVED PATIENT IN BED, AWAKE, A/O X4, NO S/S OF DISTRESS NOTED. NO COMPLAIN OF PAIN. CALL LIGHT WITHIN REACH. BED ALARM ON. BED IN LOWEST AND LOCKED POSITION. HOB ELEVATED. WITH BLOOD TRANSFUSION GOING. ON TELE MONITOR WITH SINUS 67.
--- NOTE | 2021-11-13 19:13 | NUR ---
PUBLICITY WRITER OPENING NOTE PATIENT AWAKE IN BED. A/O X4 AND ABLE TO VERBALIZED NEEDS. PT ON 2 LPM VIA NC, SATURATING WELL. NO SOB OR CARDIAC DISTRESS NOTED. ON EXTERNAL SPECIAL EDUCATION DIRECTOR READING SR 69 BPM. PT DENIES ANY PAIN AT THIS TIME. IV ACCESS IN BILATERAL HANDS 20 GAUGE, INTACT AND PATENT. WITH MARIE CATHETER DRAINING CLEAR YELLOW URINE. SAFETY PRECAUTIONS IN PLACE. BED IN LOWEST LOCKED POSITION, HOB ELEVATED, SIDE RAILS UP X2, AND CALL LIGHT AND TABLE WITHIN REACH. KEPT RESTED AND COMFORTABLE. WILL MONITOR ACCORDINGLY. WITH ONGOING BLOOD TRANSFUSION. PATIENT STABLE, WILL ENDORSE TO NEXT SHIFT FOR PEDRO LUIS. Addendum: 11/13/21 at 1916 by HECTOR CASTILLO RN ERROR ITS CLOSING NOTES.
--- NOTE | 2021-11-13 19:16 | NUR ---
CNC OPERATOR PROGRAMMER CLOSING NOTE PATIENT AWAKE IN BED. A/O X4 AND ABLE TO VERBALIZED NEEDS. PT ON 2 LPM VIA NC, SATURATING WELL. NO SOB OR CARDIAC DISTRESS NOTED. ON EXTERNAL CURATOR OF PHOTOGRAPHY AND PRINTS READING SR 69 BPM. PT DENIES ANY PAIN AT THIS TIME. IV ACCESS IN BILATERAL HANDS 20 GAUGE, INTACT AND PATENT. WITH MARIE CATHETER DRAINING CLEAR YELLOW URINE. SAFETY PRECAUTIONS IN PLACE. BED IN LOWEST LOCKED POSITION, HOB ELEVATED, SIDE RAILS UP X2, AND CALL LIGHT AND TABLE WITHIN REACH. KEPT RESTED AND COMFORTABLE. WILL MONITOR ACCORDINGLY. WITH ONGOING BLOOD TRANSFUSION. PATIENT STABLE, WILL ENDORSE TO NEXT SHIFT FOR PEDRO LUIS.
[2021-11-13 19:22] LABS: BILIRUBIN,URINE SMALL (NEGATIVE); COLOR,URINE YELLOW (YELLOW); LEUKOCYTE ESTERASE ,URINE SMALL (NEGATIVE); NITRITE, URINE NEGATIVE (NEGATIVE); PH,URINE 5.5 (5.0-8.0); PROTEIN,URINE TRACE mg/dl (NEGATIVE); UGLUCOSE NEGATIVE (NEGATIVE); UROBILINOGEN,URINE 0.2 EU/dL (0.2)
[2021-11-13 19:33] LABS: CREATININE, URINE 50.5 MG/DL (30.0-125.0)
[2021-11-13 19:47] LABS: BACTERIA,URINE 2+ /HPF (None Seen); SQUAMOUS EPITHELIAL CELL,UR 0-2 /HPF (None Seen)
[2021-11-13] MEDS: INSULIN REGULAR, HUMAN 100 UNIT/ML 3 ML VIAL SQ PRN (21:38)
--- NOTE | 2021-11-13 21:39 | NUR ---
blood sugar [id number]=482, no insulin given.
[2021-11-13 23:44] LABS: HEMOGLOBIN 7.4 g/dL (11.5-14.8)
--- NOTE | 2021-11-14 01:05 | NUR ---
INFORMED DR EUSEBIO ADAMS RE: TROPONIN=66.
[2021-11-14 01:14] VITALS: BP 112/46
[2021-11-14 04:00] VITALS: BP 118/49
[2021-11-14] MEDS: IV LR 1000 ML 1,000 ML IV PRN (04:33)
--- NOTE | 2021-11-14 04:41 | NUR ---
patient refused wound treatment at this time, patient wants it after breakfast.
[2021-11-14 06:25] LABS: BASOPHILS % (AUTO) 0.1 % (0.0-2.0); EOSINOPHILS % (AUTO) 2.6 % (0.0-6.0); HEMATOCRIT 22 % (33-45); HEMOGLOBIN 7.4 g/dL (11.5-14.8); LYMPHOCYTES # (AUTO) 0.9 K/uL (0.8-4.8); LYMPHOCYTES % (AUTO) 11.9 % (20.0-44.0); MEAN CORPUSCULAR HGB CONC 33 g/dl (31.0-36.0); MEAN CORPUSCULAR VOLUME 97 fL (82-100); MONOCYTES # (AUTO) 0.9 K/uL (0.1-1.30); MONOCYTES % (AUTO) 11.8 % (2.0-12.0); NEUTROPHILS # (AUTO) 5.3 K/uL (1.8-8.9); NEUTROPHILS % (AUTO) 73.6 % (43.0-81.0); PLATELET COUNT (AUTO) 173 K/uL (150-450); RED BLOOD CELL COUNT(AUTO) 2.31 MIL/uL (4.0-5.2); WHITE BLOOD COUNT (AUTO) 7.2 K/uL (4.3-11.0)
[2021-11-14] MEDS: INSULIN REGULAR, HUMAN 100 UNIT/ML 3 ML VIAL SQ PRN ×4 (06:37→21:43)
--- NOTE | 2021-11-14 06:37 | NUR ---
blood sugar checked= 78, no insulin given.
[2021-11-14 07:03] LABS: CREATININE 1.5 mg/dL (0.6-1.3); MAGNESIUM 2.2 mg/dL (1.8-2.4); PHOSPHORUS 2.2 mg/dL (2.5-4.9)
--- NOTE | 2021-11-14 07:30 | NUR ---
INTRAMURAL DIRECTOR OPENING NOTE RECEIVED PATIENT ASLEEP IN BED BUT EASILY ROUSED. A/O X4 AND ABLE TO VERBALIZED NEEDS. PT ON 2 LPM VIA NC, SATURATING WELL. NO S/S OF SOB OR ACUTE DISTRESS NOTED. ON EXTERNAL THERMOGRAPH OPERATOR READING SR 70 BPM. PT DENIES ANY PAIN AT THIS TIME. IV ACCESS IN BILATERAL HANDS 20 GAUGE, INTACT AND PATENT. WITH MARIE CATHETER DRAINING CLEAR YELLOW URINE. SAFETY PRECAUTIONS IN PLACE. BED IN LOWEST LOCKED POSITION, HOB ELEVATED, SIDE RAILS UP X2, AND CALL LIGHT AND TABLE WITHIN REACH. KEPT RESTED AND COMFORTABLE. WILL MONITOR ACCORDINGLY.
[2021-11-14 08:00] VITALS: BP 109/53
[2021-11-14] MEDS: SUCRALFATE 1 G/10 ML UDC GT SCH (08:03)
[2021-11-14] MEDS: FERROUS SULFATE (325 MG) 325 MG/TAB TABLET PO SCH (08:04)
[2021-11-14] MEDS: PANTOPRAZOLE 40 MG VIAL IV SCH ×2 (08:04→22:07)
[2021-11-14] MEDS: ENSURE ENLIVE CHOC 237 ML CAN PO SCH ×2 (08:14→18:03)
[2021-11-14] MEDS: BLOOD SUGAR DIAGNOSTIC 1 EACH STRIP IN SCH ×4 (09:57→21:42)
[2021-11-14] MEDS ORDERED: K PHOS NEUTRAL 250 MG TABLET PO ONE (10:00)
--- NOTE | 2021-11-14 10:11 | NUR ---
RADIOLOGY ORDERLY NOTES: LAB RESULT CK-NB 12.7 ALERTED MD FABIANA. NO NEW ORDERS.
[2021-11-14] MEDS: DAKINS QUARTER STRENGTH (0.125%) 480 ML BOTTLE TOP SCH (11:56)
[2021-11-14] MEDS: SUCRALFATE 1 G TABLET PO SCH ×3 (11:58→22:08)
[2021-11-14 12:00] VITALS: BP 117/51
--- NOTE | 2021-11-14 12:15 | NUR ---
PT UA TESTED POSITIVE FOR GRAM NEGATIVE RODS, SENSITIVITY TO FOLLOW, ALERTED LETICIA Bryson MD FOR ADVISE ON APPROPRIATE INTERVENTION
[2021-11-14 16:00] VITALS: BP 122/57
--- NOTE | 2021-11-14 18:34 | NUR ---
SLOT MACHINE MECHANIC CLOSING NOTE PATIENT ASLEEP IN BED BUT EASILY ROUSED. A/O X4 AND ABLE TO VERBALIZED NEEDS. PT ON 2 LPM VIA NC, SATURATING WELL. NO S/S OF SOB OR ACUTE DISTRESS NOTED. ON EXTERNAL BROKERAGE BRANCH MANAGER READING SR, HR 76. PT DENIES ANY PAIN AT THIS TIME. IV ACCESS IN BILATERAL HANDS 20 GAUGE, INTACT AND PATENT. WITH MARIE CATHETER DRAINING CLEAR YELLOW URINE. SAFETY PRECAUTIONS IN PLACE. DRESSING CHANGED ON L HIP WOUND. BED IN LOWEST LOCKED POSITION, HOB ELEVATED, SIDE RAILS UP X2, AND CALL LIGHT AND TABLE WITHIN REACH. KEPT RESTED AND COMFORTABLE. WILL ENDORSE TO NEXT SHIFT.
--- NOTE | 2021-11-14 19:05 | NUR ---
OUTSOLE SCHEDULER OPENING NOTES: RECEIVED PATIENT IN BED, ASLEEP, AROUSABLE. A/O X4. NO S/S OF DISTRESS NOTED. NO COMPLAIN OF PAIN. CALL LIGHT WITHIN REACH. BED ALARM ON. BED IN LOWEST AND LOCKED POSITION. WITH MARIE CATHETER INTACT, DRAINING YELLOW URINE OUTPUT.
--- NOTE | 2021-11-14 19:56 | NUR ---
ON TELE MONITOR WITH SINUS WITH FIRST DEGREE AV BLOCK-63.
[2021-11-14 20:01] VITALS: BP 93/44
[2021-11-14] MEDS: PIPERACILLIN /TAZOBACTAM 3.375 G in IV D5W 100 ML IV SCH (22:08)
[2021-11-15 00:17] VITALS: BP 116/75
[2021-11-15 04:36] VITALS: BP 113/59
[2021-11-15] MEDS: PIPERACILLIN /TAZOBACTAM 3.375 G in IV D5W 100 ML IV SCH ×3 (05:13→20:38)
[2021-11-15] MEDS: BLOOD SUGAR DIAGNOSTIC 1 EACH STRIP IN SCH ×4 (06:49→20:57)
[2021-11-15] MEDS: INSULIN REGULAR, HUMAN 100 UNIT/ML 3 ML VIAL SQ PRN (06:50)
--- NOTE | 2021-11-15 06:50 | NUR ---
blood sugar checked=93, no insulin given.
[2021-11-15 06:52] LABS: BASOPHILS % (AUTO) 0.2 % (0.0-2.0); EOSINOPHILS % (AUTO) 1.7 % (0.0-6.0); HEMATOCRIT 22 % (33-45); HEMOGLOBIN 7.3 g/dL (11.5-14.8); LYMPHOCYTES # (AUTO) 0.8 K/uL (0.8-4.8); LYMPHOCYTES % (AUTO) 11.7 % (20.0-44.0); MEAN CORPUSCULAR HGB CONC 33 g/dl (31.0-36.0); MEAN CORPUSCULAR VOLUME 97 fL (82-100); MONOCYTES # (AUTO) 0.8 K/uL (0.1-1.30); MONOCYTES % (AUTO) 11.8 % (2.0-12.0); NEUTROPHILS # (AUTO) 4.9 K/uL (1.8-8.9); NEUTROPHILS % (AUTO) 74.6 % (43.0-81.0); PLATELET COUNT (AUTO) 158 K/uL (150-450); RED BLOOD CELL COUNT(AUTO) 2.27 MIL/uL (4.0-5.2); WHITE BLOOD COUNT (AUTO) 6.6 K/uL (4.3-11.0)
[2021-11-15 07:08] LABS: ALBUMIN 1.9 g/dL (3.4-5.0); BILIRUBIN,TOTAL 0.6 mg/dL (0.2-1.0); CREATININE 1.4 mg/dL (0.6-1.3); MAGNESIUM 2.3 mg/dL (1.8-2.4); PHOSPHORUS 2.7 mg/dL (2.5-4.9); TOTAL PROTEIN, SERUM 4.7 g/dL (6.4-8.2)
--- NOTE | 2021-11-15 07:20 | NUR ---
CHLOROBUTADIENE SCRUBBER OPERATOR OPENING NOTES RECEIVED PATIENT IN BED, AWAKE. A/O X4. ON 2L OF O2 VIA NC WITH NO S/SX OF DISTRESS NOTED. DENIES PAIN AT THIS TIME. MARIE CATHETER INTACT, DRAINING CLEAR YELLOW URINE. SAFETY PRECAUTIONS IN PLACE. CALL LIGHT WITHIN REACH. BED ALARM ON. BED IN LOWEST AND LOCKED POSITION. WILL CONTINUE TO MONITOR
[2021-11-15 08:00] VITALS: BP 111/51
[2021-11-15] MEDS: SUCRALFATE 1 G TABLET PO SCH ×4 (08:30→21:52)
[2021-11-15] MEDS: FERROUS SULFATE (325 MG) 325 MG/TAB TABLET PO SCH (08:30)
[2021-11-15] MEDS: PANTOPRAZOLE 40 MG TABLET.DR PO SCH ×2 (08:31→20:41)
[2021-11-15] MEDS: ENSURE ENLIVE CHOC 237 ML CAN PO SCH ×2 (08:31→17:00)
[2021-11-15] MEDS: DAKINS QUARTER STRENGTH (0.125%) 480 ML BOTTLE TOP SCH (08:32)
[2021-11-15 12:00] VITALS: BP 124/60
--- NOTE | 2021-11-15 15:00 | NUR ---
RN NOTES GI PROCEDURE PLANNED FOR THIS EVENING. PATIENT MADE AWARE OF PROCEDURE. VERBALIZED THAT WOULD LIKE PHYSICIAN TO DISCUSS PLAN PRIOR TO PROVIDING CONSENT. PLACED ON NPO STATUS.
[2021-11-15] MEDS ORDERED: ANESTHESIA TRAY IN PYXIS 1 EA TRAY MC ONE (15:01)
[2021-11-15 16:00] VITALS: BP 116/52
[2021-11-15] MEDS ORDERED: SILVER NITRATE APPLICATOR 1 EA BOX TP ONE (19:00)
[2021-11-15] MEDS ORDERED: LIDOCAINE 2%-EPI 1:100,000 30 ML VIAL TP ONE (19:00)
--- NOTE | 2021-11-15 19:00 | NUR ---
alert and orientated x4 smiling and joking NPO scheduled for egd this evening before signing the consent needs to speak to the md
--- NOTE | 2021-11-15 19:00 | NUR ---
RN NOTES ENDORSED REPORT TO PRINCIPAL CONSULTING ENGINEER NURSE FOR PEDRO LUIS
[2021-11-15 20:00] VITALS: BP 111/58
[2021-11-16] VITALS: BP 117/62
[2021-11-16 04:00] VITALS: BP_SYST 111; BP_SYST 141; BP_DIAS 53; BP_DIAS 70
--- NOTE | 2021-11-16 04:35 | NUR ---
CLOSING NOTES: ALERT AND ORIENTATED X4 SEEN BY MD REGAN LAST NIGHT AT 1930 SHE INFORMED HIM SHE DID NOT WANT THE EGD DONE KEPT NPO POSSIBLY THE MD WILL SPEAK TO HER ONCE AGAIN REGARDING THE EGD PLAN SHE IS AWARE THAT SHE WILL HAVE A DEBRIDEMENT OF THE LEFT HIP TODAY SHE IS GOOD ABOUT CHANGING HER POSITION THRU THE NIGHT NO PAIN OR NAUSEA THIS 12 HOURS MARIE DRAINAGE CLEAR YELLOW
[2021-11-16] MEDS: PIPERACILLIN /TAZOBACTAM 3.375 G in IV D5W 100 ML IV SCH ×3 (04:44→21:14)
[2021-11-16 06:30] LABS: BASOPHILS % (AUTO) 0.3 % (0.0-2.0); EOSINOPHILS % (AUTO) 1.7 % (0.0-6.0); HEMATOCRIT 22 % (33-45); HEMOGLOBIN 7.2 g/dL (11.5-14.8); LYMPHOCYTES # (AUTO) 0.7 K/uL (0.8-4.8); LYMPHOCYTES % (AUTO) 10.6 % (20.0-44.0); MEAN CORPUSCULAR HGB CONC 33 g/dl (31.0-36.0); MEAN CORPUSCULAR VOLUME 97 fL (82-100); MONOCYTES # (AUTO) 0.9 K/uL (0.1-1.30); MONOCYTES % (AUTO) 12.9 % (2.0-12.0); NEUTROPHILS # (AUTO) 4.9 K/uL (1.8-8.9); NEUTROPHILS % (AUTO) 74.5 % (43.0-81.0); PLATELET COUNT (AUTO) 168 K/uL (150-450); RED BLOOD CELL COUNT(AUTO) 2.22 MIL/uL (4.0-5.2); WHITE BLOOD COUNT (AUTO) 6.6 K/uL (4.3-11.0)
[2021-11-16] MEDS: BLOOD SUGAR DIAGNOSTIC 1 EACH STRIP IN SCH ×4 (06:46→21:25)
[2021-11-16 07:09] LABS: ALBUMIN 1.8 g/dL (3.4-5.0); BILIRUBIN,TOTAL 0.4 mg/dL (0.2-1.0); CALCIUM, SERUM 8.1 mg/dL (8.5-10.1); CREATININE 1.3 mg/dL (0.6-1.3); MAGNESIUM 2.1 mg/dL (1.8-2.4); PHOSPHORUS 2.3 mg/dL (2.5-4.9); POTASSIUM 3.7 mmol/L (3.5-5.1); TOTAL PROTEIN, SERUM 4.5 g/dL (6.4-8.2)
[2021-11-16] MEDS: SUCRALFATE 1 G TABLET PO SCH ×4 (07:30→21:14)
--- NOTE | 2021-11-16 07:58 | NUR ---
SENIOR DATA ANALYST OPENING NOTES RECEIVED PATIENT IN BED, AWAKE, A/O X4. PATIENT ON ROOM AIR; BREATHING EVEN AND UNLABORED; NO SOB OR ANY S/S OF RESPIRATORY DISTRESS. NO COMPLAINS OF PAIN AT THIS TIME. TELE MONITOR WITH CURRENT READING OF SR 62 WITH 1ST DEGREE BLOCK. IV ACCESS IN LFA G # [address] SAFETY PRECAUTIONS IN PLACE; BED IN LOW POSITION AND LOCKED, RAILS UP X2, CALL LIGHT WITHIN REACH. WILL CONTINUE TO MONITOR PATIENT.
[2021-11-16 08:00] VITALS: BP 108/149
[2021-11-16] MEDS: ENSURE ENLIVE CHOC 237 ML CAN PO SCH ×2 (08:00→17:00)
--- NOTE | 2021-11-16 08:50 | NUR ---
OVEN PRESS TENDER NOTES MD (DR. KELLY) IN THE ROOM WITH PATIENT. PATIENT REFUSES EGD. ALL RISKS HAVE BEEN DISCUSSED AND THE PATIENT STATES "LET THE NATURE TAKE ITS COURSE". SHE DOES NOT WANT ANYTHING DONE. PATIENT ALSO STATES SHE IS DNR/DNI
[2021-11-16] MEDS: PANTOPRAZOLE 40 MG TABLET.DR PO SCH ×2 (09:00→21:14)
[2021-11-16] MEDS: FERROUS SULFATE (325 MG) 325 MG/TAB TABLET PO SCH (09:00)
[2021-11-16] MEDS: DAKINS QUARTER STRENGTH (0.125%) 480 ML BOTTLE TOP SCH (09:02)
[2021-11-16] MEDS ORDERED: K PHOS NEUTRAL 250 MG TABLET PO ONE (16:30)
--- NOTE | 2021-11-16 18:55 | NUR ---
FAN MAIL CLERK CLOSING NOTES PATIENT REMAINS IN BED, AWAKE, A/O X4. PATIENT ON ROOM AIR; BREATHING EVEN AND UNLABORED; NO SOB OR ANY S/S OF RESPIRATORY DISTRESS DURING SHIFT. NO COMPLAINS OF PAIN. TELE MONITOR WITH CURRENT READING OF SR 81. IV ACCESS IN LFA G # [address] WITH A DAILY OUTPUT OF 1150 MLS. ALL NEEDS ATTENDED DURING THE DAY. SAFETY PRECAUTIONS IN PLACE; BED IN LOW POSITION AND LOCKED, RAILS UP X2, CALL LIGHT WITHIN REACH. WILL ENDORSE TO DEPARTMENT SALES MANAGER NURSE FOR PEDRO LUIS.
--- NOTE | 2021-11-16 19:30 | NUR ---
RN OPENING NOTES RECEIVED PT IN BED, LAYING ON SIDE IN BED, ASLEEP, AWAKENS TO VERBAL STIMULI. AOx4, ABLE TO MAKE NEEDS KNOWN. ON RA AND TOLERATING WELL. NO SOB NOTED. NO S/SX OF RESPIRATORY DISTRESS NOTED. TELE MONITOR DETECTS SR WITH 1ST DEGREE AV BLOCK. IV ACCESS IN LFA #20G. IV IS INTACT ,PATENT, AND FLUSHING WELL. SAFETY PRECAUTIONS IN PLACE: BED IN LOWEST, LOCKED POSITION, SIDERAILS UPx2, AND BRAKES ON. TABLE AND CALL LIGHT WITHIN REACH. WILL CONTINUE TO MONITOR.
[2021-11-16 20:00] VITALS: BP 120/63
[2021-11-16] MEDS: INSULIN REGULAR, HUMAN 100 UNIT/ML 3 ML VIAL SQ PRN (21:26)
[2021-11-17] VITALS: BP 112/57
[2021-11-17 04:00] VITALS: BP 123/54
[2021-11-17] MEDS: PIPERACILLIN /TAZOBACTAM 3.375 G in IV D5W 100 ML IV SCH ×3 (04:53→21:38)
[2021-11-17 06:14] LABS: BASOPHILS % (AUTO) 0.3 % (0.0-2.0); EOSINOPHILS % (AUTO) 1.4 % (0.0-6.0); HEMATOCRIT 23 % (33-45); HEMOGLOBIN 7.6 g/dL (11.5-14.8); LYMPHOCYTES # (AUTO) 0.8 K/uL (0.8-4.8); LYMPHOCYTES % (AUTO) 10.5 % (20.0-44.0); MEAN CORPUSCULAR HGB CONC 33 g/dl (31.0-36.0); MEAN CORPUSCULAR VOLUME 97 fL (82-100); MONOCYTES % (AUTO) 13.3 % (2.0-12.0); NEUTROPHILS # (AUTO) 5.4 K/uL (1.8-8.9); NEUTROPHILS % (AUTO) 74.5 % (43.0-81.0); PLATELET COUNT (AUTO) 169 K/uL (150-450); RED BLOOD CELL COUNT(AUTO) 2.34 MIL/uL (4.0-5.2); WHITE BLOOD COUNT (AUTO) 7.2 K/uL (4.3-11.0)
[2021-11-17] MEDS: BLOOD SUGAR DIAGNOSTIC 1 EACH STRIP IN SCH ×4 (06:35→22:00)
[2021-11-17] MEDS: INSULIN REGULAR, HUMAN 100 UNIT/ML 3 ML VIAL SQ PRN (06:44)
--- NOTE | 2021-11-17 06:48 | NUR ---
RN CLOSING NOTES PT IN BED, LAYING ON SIDE IN BED, ASLEEP, AWAKENS TO VERBAL STIMULI. AOx4, ABLE TO MAKE NEEDS KNOWN. ON RA AND TOLERATING WELL. NO SOB NOTED. NO S/SX OF RESPIRATORY DISTRESS NOTED. TELE MONITOR DETECTS SR WITH 1ST DEGREE AV BLOCK. IV ACCESS IN LFA #20G RUNNING ZOSYN @ 25 ML/HR. IV IS INTACT, PATENT, AND FLUSHING WELL. ALL ORDERS CARRIED OUT. ALL NEEDS MET. PT KEPT CLEAN AND DRY. SAFETY PRECAUTIONS IN PLACE: BED IN LOWEST, LOCKED POSITION, SIDERAILS UPx2, AND BRAKES ON. TABLE AND CALL LIGHT WITHIN REACH. WILL ENDORSE TO ONCOMING SHIFT FOR PEDRO LUIS.
[2021-11-17] MEDS: SUCRALFATE 1 G TABLET PO SCH ×4 (07:16→21:38)
--- NOTE | 2021-11-17 07:18 | NUR ---
END FINDER FORMING DEPARTMENT OPENING NOTES RECEIVED PATIENT IN BED, AWAKE, A/O X4. PATIENT ON ROOM AIR; BREATHING EVEN AND UNLABORED; NO SOB OR ANY S/S OF RESPIRATORY DISTRESS. NO COMPLAINS OF PAIN AT THIS TIME. TELE MONITOR WITH CURRENT READING OF SR 67 WITH 1ST DEGREE BLOCK. IV ACCESS IN LFA G # [address] SAFETY PRECAUTIONS IN PLACE; BED IN LOW POSITION AND LOCKED, RAILS UP X2, CALL LIGHT WITHIN REACH. WILL CONTINUE TO MONITOR PATIENT.
[2021-11-17 08:06] LABS: ALBUMIN 1.8 g/dL (3.4-5.0); BILIRUBIN,TOTAL 0.6 mg/dL (0.2-1.0); CALCIUM, SERUM 7.8 mg/dL (8.5-10.1); CREATININE 1.2 mg/dL (0.6-1.3); PHOSPHORUS 2.9 mg/dL (2.5-4.9); TOTAL PROTEIN, SERUM 4.9 g/dL (6.4-8.2)
[2021-11-17] MEDS: FERROUS SULFATE (325 MG) 325 MG/TAB TABLET PO SCH (08:07)
[2021-11-17] MEDS: PANTOPRAZOLE 40 MG TABLET.DR PO SCH ×2 (08:07→21:38)
[2021-11-17] MEDS: ENSURE ENLIVE CHOC 237 ML CAN PO SCH ×2 (08:07→17:12)
[2021-11-17] MEDS: DAKINS QUARTER STRENGTH (0.125%) 480 ML BOTTLE TOP SCH (08:08)
[2021-11-17 08:21] LABS: POTASSIUM 3.9 mmol/L (3.5-5.1)
--- NOTE | 2021-11-17 18:30 | NUR ---
CANVAS CUTTER CLOSING NOTES PATIENT REMAINS IN BED, ASLEEP. A/O X4 DURING THE DAY. PATIENT ON ROOM AIR; BREATHING EVEN AND UNLABORED; NO SOB OR ANY S/S OF RESPIRATORY DISTRESS DURING SHIFT. NO COMPLAINS OF PAIN. TELE MONITOR WITH CURRENT READING OF SR WITH 1ST DEGREE BLOCK. IV ACCESS IN LFA G # [address] WITH DAILY OUTPUT OF 700 MLS. ALL NEEDS ATTENDED DURING THE DAY. SAFETY PRECAUTIONS IN PLACE; BED IN LOW POSITION AND LOCKED, RAILS UP X2, CALL LIGHT WITHIN REACH. WILL ENDORSE TO HEALTH PLAN ADVISOR NURSE FOR PEDRO LUIS.
--- NOTE | 2021-11-17 19:45 | NUR ---
MACHINE PACKAGE SEALER OPENING NOTES: RECEIVED PATIENT SLEEP IN BED COMFORTABLY, AROUSABLE TO VERBAL STIMULI, BED IN LOW POSITION CALL LIGHTS WITHIN REACH, NO COMPLAIN OF PAIN AND DISCOMFORT AT THIS TIME, ON ROOM AIR SATURATING WELL, ON TELE MONITOR SR-80 WITH FIRST DEGREE BLOCK NO SYMPTOMS WAS OBSERVED, PATIENT KEPT CLEAN AND DRY ALL NEEDS MET, WILL CONTINUE TO MONITOR.
[2021-11-17 20:00] VITALS: BP 122/76
[2021-11-17 20:06] VITALS: BP 122/76
--- NOTE | 2021-11-17 23:01 | NUR ---
RN NOTES: BLOOD SUGAR- 128 NO INSULIN GIVEN/ OUT OF PARAMETER
[2021-11-18] VITALS (7 sets, daily range): BP systolic 102–128; BP diastolic 36–62
[2021-11-18] MEDS: IV LR 1000 ML 1,000 ML IV PRN (05:11)
[2021-11-18] MEDS: PIPERACILLIN /TAZOBACTAM 3.375 G in IV D5W 100 ML IV SCH ×2 (05:13→12:44)
--- NOTE | 2021-11-18 06:30 | NUR ---
CLIENT SERVICES DIRECTOR CLOSING NOTES: PATIENT SLEEP IN BED COMFORTABLY, AROUSABLE TO VERBAL STIMULI, BED IN LOW POSITION CALL LIGHTS WITHIN REACH, NO COMPLAIN OF PAIN AND DISCOMFORT AT THIS TIME, ON ROOM AIR SATURATING WELL, ON TELE MONITOR- SR-73 WITH MARIE CATHETER-1300 ml , PATIENT KEPT CLEAN AND DRY ALL NEEDS MET ENDORSE TO INCOMING SHIFT.
--- NOTE | 2021-11-18 06:52 | NUR ---
RN NOTES: BLOOD SUGAR-87 NO INSULIN GIVEN PER SLIDING SCALE OUT OF PARAMETER
[2021-11-18] MEDS: BLOOD SUGAR DIAGNOSTIC 1 EACH STRIP IN SCH ×3 (06:57→17:13)
--- NOTE | 2021-11-18 07:30 | NUR ---
TELEPHOTO ENGINEER OPENINIG NOTES RECEIVED PATIENT ON BED ,AWAKE ,A/O X2-3 , RF #20 SL WITH IV ATB ON GOING PEPIRACILLIN @ 25 ML /HR , NO SOB OR DISTRESS NOTED , BED IN LOWEST POSITION , CALL LIGHTS WITHIN REACH, NO COMPLAIN OF PAIN AND DISCOMFORT AT THIS TIME, ON ROOM AIR SATURATING WELL, ON TELE MONITOR SR- 65 , WILL CONTINUE TO MONITOR.
[2021-11-18] MEDS: FERROUS SULFATE (325 MG) 325 MG/TAB TABLET PO SCH (08:34)
[2021-11-18] MEDS: PANTOPRAZOLE 40 MG TABLET.DR PO SCH (08:35)
[2021-11-18] MEDS: ENSURE ENLIVE CHOC 237 ML CAN PO SCH ×2 (08:35→17:14)
[2021-11-18] MEDS: SUCRALFATE 1 G TABLET PO SCH ×3 (08:35→17:24)
[2021-11-18] MEDS: DAKINS QUARTER STRENGTH (0.125%) 480 ML BOTTLE TOP SCH (08:41)
--- NOTE | 2021-11-18 19:00 | NUR ---
RN opening notes Received Pt from morning nurse. Pt is going to be SHILO zepeda to [facility] and turkey picker time at 1999. Pt is alert and orientedX3. On room air. No SOB. No S/S of distress noted. IV site at RFA# 20 is clean, intact and SL. Safety precautions is maintianed. Bed at low position, brakes locked, side rails upX3, hob elevated, bed alarm is on and call light is within reach. Will continue to monitor.
--- NOTE | 2021-11-18 20:00 | NUR ---
MARLON LAO notes [place] prof. [facility] (Giovani Aldridge) and another EMT came to transport Pt to [facility]. Report was given to MARLON Garcia per am nurse. SHILO paperwork signed by Pt and given to EMT's. Pt verbalize understanding. Pt's belonging is given to Pt. Pt is alert and orientedX3. VS is stable. IV site is removed. tele monitor is removed. Addendum: 11/18/21 at 2027 by NICKOLAS GRIJALVA RN Pt's armband is removed.
== END 2021-11-18 20:00 | DRG 356 ==
LOC: ER 19:52 → TELE 22:14
PROVIDERS: ADMIT Nurse Practitioner Acute Care
PROC: 30233P1 Transfusion of Nonautologous Frozen Red Cells into Peripheral Vein, Percutaneous Approach (ICD-10-PCS; 2021-11-12)
PROC: 30233N1 Transfusion of Nonautologous Red Blood Cells into Peripheral Vein, Percutaneous Approach (ICD-10-PCS; 2021-11-12)
PROC: 0JBM0ZZ Excision of Left Upper Leg Subcutaneous Tissue and Fascia, Open Approach (ICD-10-PCS; principal; 2021-11-16)
DX: K27.4 Chronic or unspecified peptic ulcer, site unspecified, with hemorrhage (principal); I21.A1 Myocardial infarction type 2; L89.223 Pressure ulcer of left hip, stage 3; N17.0 Acute kidney failure with tubular necrosis; E87.0 Hyperosmolality and hypernatremia; M62.82 Rhabdomyolysis; D62 Acute posthemorrhagic anemia; E86.0 Dehydration; E11.22 Type 2 diabetes mellitus with diabetic chronic kidney disease; I12.9 Hypertensive chronic kidney disease with stage 1 through stage 4 chronic kidney disease, or unspecified chronic kidney disease; N18.9 Chronic kidney disease, unspecified; Z20.822 Contact with and (suspected) exposure to COVID-19; D63.8 Anemia in other chronic diseases classified elsewhere; Z86.73 Personal history of transient ischemic attack (TIA), and cerebral infarction without residual deficits; E78.5 Hyperlipidemia, unspecified; Z88.6 Allergy status to analgesic agent; Z88.5 Allergy status to narcotic agent; Z79.4 Long term (current) use of insulin; Z79.899 Other long term (current) drug therapy; I48.91 Unspecified atrial fibrillation; Z98.84 Bariatric surgery status; Z87.891 Personal history of nicotine dependence; H54.7 Unspecified visual loss; W18.30XA Fall on same level, unspecified, initial encounter; Y92.039 Unspecified place in apartment as the place of occurrence of the external cause; K29.70 Gastritis, unspecified, without bleeding; K20.90 Esophagitis, unspecified without bleeding
CPT/HCPCS: 36415; 70450-TC; 71045-TC; 72170-TC; 76770-TC; 80048-TC; 80053-TC; 80061-TC; 80076-TC; 81001; 82140-TC; 82533; 82550-TC; 82553; 82570-TC; 82962-TC; 83540-TC; 83735-TC; 84100-TC; 84300-TC; 84443-TC; 84484-TC; 85025-TC; 85027-TC; 85730-TC; 86850-TC; 87081-TC; 87086-TC; 87186-TC; 93307-TC; 94799-TC; 97116-TC; 97530-TC; A6253; A6403; C9113; C9803; G0378; G0480; J1815; J2405; J2543; J3490; J7030; J7040; J7050; J7060; J7120; P9016; P9017